=== PATIENT | female | born 1970 | race Hispanic/Latino ===

== ENCOUNTER → 2024-10-27 | Outpatient (CLI) | payer BC ==
--- NOTE | 2024-10-27 10:26 | HMCIMG ---
MR SPINAL CANAL, LUMBAR WO CON HISTORY: Low back pain COMPARISON: None TECHNIQUE: MRI of the lumbar spine was performed utilizing multiple pulse sequences in axial , coronal and sagittal plane. Patient was not given contrast through intravenous route. FINDINGS: No abnormal signal intensity is seen of the visualized bony structure. No loss of vertebral height is seen. There is straightening of normal lumbar curvature which may be related to muscle spasm or positioning. Degenerative disc signals are present at L4-5 and L5-S1 levels. Visualized distal conus is unremarkable. There may be minimal scoliosis. At the L4-5 level, there is mild annular disc bulge with bilateral ligamentum flavum hypertrophy causing anterior thecal sac compression with bilateral lateral recess stenosis and minimal bilateral neural foraminal stenosis. The thecal sac measures approximately 8.6 mm in its anterior posterior dimension. At the L5-S1 level, there is mild annular disc bulge with bilateral ligamentum flavum hypertrophy causing anterior thecal sac compression with bilateral lateral recess stenosis and minimal bilateral neural foraminal stenosis. The thecal sac measures approximately 8.4 mm in its anterior posterior dimension. IMPRESSION: 1. 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
== END | disposition home or self-care (01) ==
LOC: RAH 09:23
PROVIDERS: ATTEND Physical Medicine & Rehabilitation
DX: M47.817 Spondylosis without myelopathy or radiculopathy, lumbosacral region (principal); M99.05 Segmental and somatic dysfunction of pelvic region; M51.26 Other intervertebral disc displacement, lumbar region; M99.03 Segmental and somatic dysfunction of lumbar region; M48.07 Spinal stenosis, lumbosacral region; M47.897 Other spondylosis, lumbosacral region
CPT/HCPCS: 72148